=== PATIENT | female | born 1985 | race Caucasian/White ===

== ENCOUNTER 2016-06-26 09:47 | Inpatient (IN) | payer OTHER ==
[~2016-06-26] VITALS: Ht 160 cm; Wt 67.2 kg
[~2016-06-26 09:47] MED LIST: LORA-741 PO; ZOLP5TAB PO
[2016-06-26] MEDS ORDERED: SODIUM CHLORIDE 0.9% 1000ML 1,000 ML IV STA (09:58)
--- NOTE | 2016-06-26 10:13 | EMERGENCY ROOM VISIT NOTE ---
History Report prepared by Kaity: Mari Armenta Under the Supervision of: Dr. Drake Segura D.O. First contact with patient: 09:50 Chief Complaint: OVERDOSE (INTENTIONAL) Stated Complaint: OVERDOSED ON ATIVAN/INTENTIONAL History of Present Illness The patient is a 31 year old female who presents to the Emergency Room with complaints of intentional overdose on Ativan. About an hour and a half ago, the patient's found her to be extremely drowsy. The patient states that she took the Ativan at least an hour ago. She reports taking half of a bottle of 0.5 mg Ativan. As per , she took at least 15-18 pills. She denies overdosing on any other medication but the patient's is unsure. She also reports taking Amoxicillin and Zoloft as prescribed. She denies vomiting. She currently denies any pain. The patient reports suicidal ideation starting a few days ago. She started having severe anxiety and depression last week. She was recently discharged from the [facility] after being treated for depression and anxiety. She took the Ativan in an attempt to commit suicide. Source of History: patient, spouse/significant other Onset: about an hour and a half ago Position: other (global) Symptom Intensity: No pain Quality: other (intentional overdose on Ativan) Associated Symptoms: No vomiting Review of Systems See HPI for pertinent positives & negatives. A total of 10 systems reviewed and were otherwise negative. Past Medical & Surgical Medical Problems: (1) Anxiety (2) Bipolar disorder (3) Depression (4) Overdose Surgical Problems: (1) H/O wisdom tooth extraction (2) Hx of cholecystectomy Family History Cancer Diabetes mellitus Heart disease Hypertension Social History Smoking Status: Current Every Day Smoker Alcohol Use: none Drug Use: none Marital Status: Housing Status: lives with family, lives with significant other Occupation Status: unemployed Current/Historical Medications Scheduled Lorazepam (Ativan), 0.5 MG PO Q6H Zolpidem Tartrate (Ambien), 5 MG PO HS Allergies Coded Allergies: Penicillins (Unverified Allergy, Unknown, UNKNOWN,HAS HAD AMOXICILLIN W/O RXN, 06/26/16) has had amoxillin and had not reaction Physical Exam Vital Signs Date Time Temp Pulse Resp B/P Pulse Ox O2 Delivery O2 Flow Rate FiO2 06/26/16 13:23 68 16 90/66 97 Room Air 06/26/16 13:03 64 06/26/16 12:30 58 16 89/41 98 Nasal Cannula 2.0 06/26/16 12:15 57 16 105/62 97 Nasal Cannula 2.0 06/26/16 11:28 59 16 88/43 97 Room Air 06/26/16 10:48 62 18 90/53 99 Nasal Cannula 2.0 06/26/16 10:34 75 06/26/16 10:33 100 Nasal Cannula 2.0 06/26/16 10:28 69 14 111/65 100 Nasal Cannula 2.0 06/26/16 10:16 99 Room Air 06/26/16 09:53 36.5 77 16 123/78 97 Room Air Physical Exam GENERAL: Patient is listless and slow to respond to questions. Does not appear to be in pain. EYES: The conjunctivae are clear. The pupils are dilated but reactive to light bilaterally. EARS, NOSE, MOUTH AND THROAT: The nose is without any evidence of any deformity. Mucous membranes are moist tongue is midline NECK: The neck is nontender and supple. RESPIRATORY: Normal respiratory effort is noted there is no evidence of wheezing rhonchi or rales CARDIOVASCULAR: Regular rate and rhythm noted there no murmurs rubs or gallops normal S1 normal S2 GASTROINTESTINAL: The abdomen is soft. Bowel sounds are present in all quadrants. Abdomen is nontender MUSCULOSKELETAL/EXTREMITIES: There is no evidence of gross deformity full range of motion is noted in the hips and shoulders SKIN: There is no obvious evidence of any rash. There are no petechiae, pallor or cyanosis noted. NEUROLOGIC: Patient is oriented to person, place, and situation, strength is symmetric patellar reflexes are 1+ bilaterally PSYCHIATRIC: Affect is flat. Admits to suicidal ideation and suicidal gesture. Medical Decision & Procedures ER Provider Diagnostic Interpretation: X-ray results as stated below per interpretation by me and the radiologist. SINGLE VIEW CHEST CLINICAL HISTORY: Overdose. FINDINGS: An AP, portable, upright chest radiograph is obtained. No prior studies are available for comparison at the time of dictation. The examination is degraded by portable technique and patient rotation. The cardiomediastinal silhouette is unremarkable. The lungs and pleural spaces are clear. No pneumothorax is seen. The bony thorax is grossly intact. IMPRESSION: No active disease in the chest. Electronically signed by: Kadeem Erickson M.D. 06/26/2016 10:18 AM Dictated Date/Time: 06/26/2016 10:17 AM Laboratory Results 06/26/16 10:00 Red Blood Count 4.38, Mean Corpuscular Volume 90.2, Mean Corpuscular Hemoglobin 31.7, Mean Corpuscular Hemoglobin Concent 35.2, Mean Platelet Volume 10.9, Neutrophils (%) (Auto) 60.9, Lymphocytes (%) (Auto) 23.9, Monocytes (%) (Auto) 9.5, Eosinophils (%) (Auto) 4.1, Basophils (%) (Auto) 0.7, Neutrophils # (Auto) 3.25, Lymphocytes # (Auto) 1.28, Monocytes # (Auto) 0.51, Eosinophils # (Auto) 0.22, Basophils # (Auto) 0.04 Test 06/26/16 10:00 06/26/16 10:21 06/26/16 10:26 White Blood Count 5.35 K/uL (4.8-10.8) Red Blood Count 4.38 M/uL (4.2-5.4) Hemoglobin 13.9 g/dL (12.0-16.0) Hematocrit 39.5 % (37-47) Mean Corpuscular Volume 90.2 fL (80-100) Mean Corpuscular Hemoglobin 31.7 pg (25-34) Mean Corpuscular Hemoglobin Concent 35.2 g/dl (32-36) Platelet Count 209 K/uL (130-400) Mean Platelet Volume 10.9 fL (7.4-10.4) Neutrophils (%) (Auto) 60.9 % Lymphocytes (%) (Auto) 23.9 % Monocytes (%) (Auto) 9.5 % Eosinophils (%) (Auto) 4.1 % Basophils (%) (Auto) 0.7 % Neutrophils # (Auto) 3.25 K/uL (1.4-6.5) Lymphocytes # (Auto) 1.28 K/uL (1.2-3.4) Monocytes # (Auto) 0.51 K/uL (0.11-0.59) Eosinophils # (Auto) 0.22 K/uL (0-0.5) Basophils # (Auto) 0.04 K/uL (0-0.2) RDW Standard Deviation 39.4 fL (36.4-46.3) RDW Coefficient of Variation 12.0 % (11.5-14.5) Immature Granulocyte % (Auto) 0.9 % Immature Granulocyte # (Auto) 0.05 K/uL (0.00-0.02) Prothrombin Time 10.7 SECONDS (9.0-12.0) Prothromb Time International Ratio 1.0 (0.9-1.1) Activated Partial Thromboplast Time 28.9 SECONDS (21.0-31.0) Partial Thromboplastin Ratio 1.1 Direct Bilirubin < 0.1 mg/dl (0-0.2) Total Creatine Kinase 148 U/L (26-192) Troponin I < 0.015 ng/ml (0-0.045) Lipase 122 U/L (73-393) Human Chorionic Gonadotropin, Qual NEG (NEG) Salicylates Level 3.5 mg/dl (2.8-20) Acetaminophen Level < 2 ug/ml (10-30) Venous Blood pH 7.34 (7.36-7.41) Venous Blood Partial Pressure CO2 36 mmHg (38.0-50.0) Venous Blood Partial Pressure O2 33 mmHg Venous Blood HCO3 19 mmol/L Venous Blood Oxygen Saturation 65.4 % Venous Blood Base Excess -5.9 mmol/L Ethyl Alcohol mg/dL < 3.0 mg/dl (0-3) Bedside Glucose 86 mg/dl (70-90) Laboratory results per my review. Medications Administered Medications (Trade) Dose Ordered Sig/Kenrick Route Start Time Stop Time Status Last Admin Dose Admin Sodium Chloride (Nss 1000ml) 1,000 ml @ 999 mls/hr Q1H1M STAT IV 06/26/16 09:58 06/26/16 10:58 DC 06/26/16 09:58 999 MLS/HR ECG Indication: other (Overdose) Rate (beats per minute): 58 Rhythm: sinus bradycardia Findings: no ectopy, other (No acute ST segment abnormality) Comparison ECG Date: no prior available ED Course 0950: The patient was evaluated in room A03. A complete history and physical examination were performed. 0958: Sodium Chloride 1000 ml @ 999 mls/hr IV 1230: Upon reevaluation, the patient is resting comfortably. I discussed results and treatment plan with the patient and her . They verbalize agreement and understanding. I spoke with Karen Majano PA-C of the [facility]. The patient will be evaluated for further management and care. Medical Decision Prior records/ancillary studies reviewed. Triage Nursing notes reviewed. Additional history obtained from . Differential diagnosis: Etiologies such as toxicologic, infection, hypoglycemia, electrolyte abnormalities, cardiac sources, intracerebral event, neurologic, as well as others were entertained. The patient is a 31-year-old female who presented to the emergency department after an intentional overdose on benzodiazepines. The patient admitted to taking a handful of her Ativan this morning. The patient presented greater than an hour after the ingestion and was already starting to become obtunded. For this reason she was not given charcoal. The patient was observed in the emergency department. She was treated with IV fluids. She continued to be obtunded. I discussed his case with the [facility]. I also discussed his case with the on-call [facility] hospitalist group. They've agreed to evaluate the patient in emergency department for further management and disposition. I discussed the patient's laboratory and radiographic studies with her and her significant other as well as her father. I do feel the patient will continue to improve over time. She did not appear to require endotracheal intubation at this time. Consults Time Called: 1206 Consulting Physician: Karen Majano PA-C of the [facility] Medical Group Returned Call: 1230 I spoke with Karen Majano PA-C of the [facility]. Impression Primary Impression: Suicidal ideation Additional Impressions: Suicide gesture Benzodiazepine overdose Scribe Attestation The scribe's documentation has been prepared under my direction and personally reviewed by me in its entirety. I confirm that the note above accurately reflects all work, treatment, procedures, and medical decision making performed by me. Departure Information Dispostion Being Evaluated By Hospitalist Referrals No Doctor, Assigned (PCP) Patient Instructions My [facility] Problem Qualifiers
--- NOTE | 2016-06-26 10:19 | DIAGNOSTIC IMAGING REPORT ---
SINGLE VIEW CHEST CLINICAL HISTORY: Overdose. FINDINGS: An AP, portable, upright chest radiograph is obtained. No prior studies are available for comparison at the time of dictation. The examination is degraded by portable technique and patient rotation. The cardiomediastinal silhouette is unremarkable. The lungs and pleural spaces are clear. No pneumothorax is seen. The bony thorax is grossly intact. IMPRESSION: No active disease in the chest. Electronically signed by: Kadeem Erickson M.D. 06/26/2016 10:18 AM Dictated Date/Time: 06/26/2016 10:17 AM
[2016-06-26 10:24] LABS: HEMATOCRIT 39.5 % (37-47); MEAN CELL VOLUME 90.2 fL (80-100); MEAN CORPUSCULAR HEMOGLOBIN 31.7 pg (25-34); MEAN CORPUSCULAR HGB CONC 35.2 g/dl (32-36); MEAN PLATELET VOLUME 10.9 fL (7.4-10.4); PLATELET COUNT 209 K/uL (130-400); RED BLOOD COUNT 4.38 M/uL (4.2-5.4); WHITE BLOOD COUNT 5.35 K/uL (4.8-10.8)
[2016-06-26 10:28] LABS: PARTIAL THROMBOPLASTIN RATIO 1.1; PROTHROMBIN TIME (PATIENT) 10.7 SECONDS (9.0-12.0)
[2016-06-26 10:37] LABS: ALT/SGPT 33 U/L (12-78); AST/SGOT 20 U/L (15-37); BLOOD UREA NITROGEN 11 mg/dl (7-18); BUN/CREATININE RATIO 11.2 (10-20); CALCIUM 8.7 mg/dl (8.5-10.1); CARBON DIOXIDE 20 mmol/L (21-32); CHLORIDE 111 mmol/L (98-107); CREATININE 0.94 mg/dl (0.60-1.20); GLUCOSE 78 mg/dl (70-99); POTASSIUM 3.7 mmol/L (3.5-5.1); SODIUM 141 mmol/L (136-145)
[2016-06-26 10:40] LABS: VEN BLD GAS O2 SATURATION 65.4 %; VEN BLOOD GAS BASE EXCESS -5.9 mmol/L
[2016-06-26 10:40] LABS: PREG INTERNAL NEGATIVE QC NEG CLEAR BACKGROUND; PREG INTERNAL POSITIVE QC POS CONTROL LINE
[2016-06-26 10:42] LABS: ALKALINE PHOSPHATASE 89 U/L (45-117)
[2016-06-26 10:43] LABS: BASO % 0.7 %; BASO ABS # 0.04 K/uL (0-0.2); COMPLETE YES; EOS % 4.1 %; IG% 0.9 %; LYMPH % 23.9 %; LYMPH ABS # 1.28 K/uL (1.2-3.4); MONO % 9.5 %; NEUT % 60.9 %
[2016-06-26 10:45] LABS: ACETAMINOPHEN < 2 ug/ml (10-30)
[2016-06-26] MEDS ORDERED: SODIUM CHLORIDE 0.9% 1000ML 1,000 ML IV SCH (13:02)
[2016-06-26] MEDS ORDERED: NITROGLYCERIN 0.4 MG SL PER TAB CHARGE SL PRN (13:15)
[2016-06-26] MEDS ORDERED: ACETAMINOPHEN 325 MG TAB PO PRN (13:15)
[2016-06-26] MEDS ORDERED: ONDANSETRON INJ 2 MG/ML 2 ML VIAL IV PRN (13:15)
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
[2016-06-26 14:59] VITALS: BP 107/67; PULSE 72; TEMP 36.5; O2SAT 98; Ht 160 cm; Wt 67.2 kg
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
[2016-06-26 15:34] LABS: URINE APPEARANCE CLOUDY (CLEAR); URINE BILIRUBIN NEG (NEG); URINE COLOR YELLOW; URINE EPITHELIAL CELL AUTO >30 /lpf (0-5); URINE NITRITE NEG (NEG); URINE PH 6.5 (4.5-7.5); UROBILINOGEN NEG (NEG)
[2016-06-26 15:38] LABS: MANUAL MICROSCOPIC REQUIRED? NO; REVIEW REQ? NO
[2016-06-26 16:00] VITALS: BP 113/78; PULSE 63; TEMP 36.7; O2SAT 98
[2016-06-26 16:33] LABS: BENZODIAZEPINE, URINE NEG (NEG); COCAINE,URINE NEG (NEG); PHENCYCLIDINE, URINE NEG (NEG)
[2016-06-26 16:37] LABS: BUN/CREATININE RATIO 13.3 (10-20); CALCIUM 8.2 mg/dl (8.5-10.1); CREATININE 0.72 mg/dl (0.60-1.20); POTASSIUM 3.7 mmol/L (3.5-5.1)
[2016-06-26 18:00] VITALS: BP 104/73; PULSE 69; O2SAT 97
[2016-06-26 20:00] VITALS: BP 99/69; PULSE 52; TEMP 36.4; O2SAT 96; O2SAT 98
[2016-06-26 22:00] VITALS: BP 96/55; PULSE 58; O2SAT 95
[2016-06-26 23:59] VITALS: O2SAT 96
[2016-06-27] VITALS (18 sets, daily range): BP systolic 98–122; BP diastolic 51–73; PULSE 53–83; TEMP 36.5–36.8; O2SAT 95–98
[2016-06-27 06:13] LABS: MEAN CELL VOLUME 91.9 fL (80-100); MEAN CORPUSCULAR HEMOGLOBIN 31.2 pg (25-34); MEAN PLATELET VOLUME 10.8 fL (7.4-10.4); PLATELET COUNT 174 K/uL (130-400); RED BLOOD COUNT 3.81 M/uL (4.2-5.4); WHITE BLOOD COUNT 6.52 K/uL (4.8-10.8)
[2016-06-27 06:40] LABS: BUN/CREATININE RATIO 20.7 (10-20); CALCIUM 7.8 mg/dl (8.5-10.1); CREATININE 0.59 mg/dl (0.60-1.20); POTASSIUM 3.7 mmol/L (3.5-5.1)
[2016-06-27 06:42] LABS: ALB/GLOB RATIO 1.1 (0.9-2)
--- NOTE | 2016-06-27 10:44 | Critical Care Progress Note ---
Critical Care Progress Note Date of Service Jun 27, 2016. Attending Dr. Barrie Brian Esha Mcdonald is a 31 yr old female with a significant past psychiatric hx of anxiety, bipolar, and depression requiring both hospitalization and chronic medication use. She was recently discharged from the [facility] on 06/20/2016 after experiencing suicidal ideations. While there she began having increased auditory hallucinations, which she states were not addressed. She received Ativan 0.5mg q6hr for anxiety. She stated today that she was not taking this medication as directed. She instead held it until yesterday at which time her mother's voice was bullying her in her head and she took 1/2 the bottle to shut her mother's voice up. She stated her day had already started off difficult as her was screaming at the kids as well. She entered the ED with hypotension which responded to fluids and bradycardia which as since improved to NSR. Today her diet was restarted and she is tolerating it well. She continues to state she can not live like this; referring to the voices in her head. She would like to go to [place] for continued Psychiatric therapy. She states she will not go upstairs to [facility] or back to the [facility]. She did ask if she was currently voluntary status, I reassured her that she currently is. She would like it to remain that way and is accepting of inpatient treatment. She did ask if she could go home; to which she quickly replied and said "I know, No" I have spoken with Dr. Hampton last evening in the hopes to expedite Ms. Mcdonald transfer to inpatient psych care; we are awaiting formal recommendations. The nurse liaison did she her last evening. All psych medications have currently been held by the ICU/hospitalist providers. I spoke with her in regards to her urine toxicology screen being negative for Benzos when she states she took 1/2 bottle of Ativan. She called her who checked the bottles and confirmed it was indeed her Ativan. She denies visual hallucinations; states the the auditory come and go. She denies changes in vision or headache. She denies fevers, chills, malaise. chest pain/pressure, shortness of breath, or cough. She denies abd pain, nausea, or dysuria. Objective Vital Signs - as noted Laboratory Data - as noted Physical Exam: General - NAD, depressed affect, resting in bed Eyes - PERRL, EOMI No icterus, gaze conjugate ENT - Mucosa moist, no lesions or candidiasis Neck - Supple, trachea midline, no masses or lymphadenopathy, no JVD or bruits Lungs - No paradoxical chest wall movement, clear to auscultation bilaterally, no wheezes, rales, or rhonchi Heart - Reg rate and rhythm, No murmur, rubs, clicks, or gallops appreciated Abdomen - BS present, no bruits noted, tympanic to percussion, soft, nontender, nondistended, no organomegaly Extremities - No edema, pedal pulses intact Neuro - A&O X 4 Strength: extremities equal and appropriate bilaterally Reflexes: Brachioradialis, patellar, and plantar normal and equal Cerebellum: Finger to nose appropriate CN:PERRL, EOMI, no facial asymmetry, uvula/tongue midline Assessment & Plan (1) Benzodiazepine overdose (2) Depression (3) Overdose (4) Suicidal ideation (5) Suicide gesture (6) Anxiety (7) Bipolar disorder Neuro/psych: Benzodiazepine overdose secondary to suicidal ideation and depression Spoke with Dr. Hampton in regards to expediting consult 06/26; Nurse Liaison did indeed see pt last evening. Communication from Dr. Hampton this morning is that they will attempt to refer her to the alternate facility; however, if they won't accept her then our unit has an available bed. She may need to be 302 for her safety if [facility] does not accept her and she refuses care here. Suspicious of pt's OD being malingering; as urine tox screen is negative for benzo use. Suicide checks every 15 minutes per nursing Repeat Urine Drug Screen; previous screen is negative for Benzos Consult psych pending * Hold home meds pending psychiatric recommendations * Pt will to 201 herself to inpatient psychiatric treatment Cardiology: NSR, SBP improving Now: HR 80's and SBP >100 Stabilized, would agree to downgrading medical status Discontinue fluids Respiratory: Currently stable with adequate saturations on room air No respiratory compromise noted since admission Continue to observe : Positive 1.1L BUNs/creatinine: 12/0.59 Discontinue fluids GI: Patient states last BM in the emergency department; not seen in her records No abdominal pain No indication for GI prophylaxis Begin Regular Diet now Heme: H&H 11.9/35.0; Plts 174 No sign of bleeding; decrease in H&H likely dilutional DVT prophylaxis: * SCDs ordered * Out of bed and ambulatory per nursing discretion ID: WBC 6.52; afebrile No indication for abx ENDO: Glucose trending down; 55 this AM Previous admission records show glucose in the 90's. Began Diet and provided O.J Recheck Glucose per nursing protocol CCT: 0 minutes; Level 3 Inpatient; Not including any billable procedures. Thank you for including us in the care of this patient. Please review Dr. Storm Kaye's addendum for further recommendations. Wireless Sales Expert Attending: I personally interviewed and examined this patient. Her care was discussed in detail on multidisciplinary rounds and I have reviewed her data and labs as well as documentation. I have reviewed this note and agree with the impression and plan. Medically she is cleared to go to the psychiatry service. It's still unclear if the urine tox screen was falsely negative for benzos or if there may be some malingering. Her BP is acceptable as is her mental status. We are awaiting word regarding transfer to the floor vs. transfer to [place]. Many thanks to the [facility] for their assistance in her care. Consults & Procedures Consultants: Consults: Psych: Dr. Hampton Data Medications: Current Inpatient Medications Medications (Trade) Dose Ordered Sig/Kenrick Route Start Time Stop Time Status Last Admin Dose Admin Acetaminophen (Tylenol Tab) 650 mg Q4H PRN PO 06/26/16 13:15 07/26/16 13:14 Ondansetron HCl (Zofran Inj) 4 mg Q6H PRN IV 06/26/16 13:15 07/26/16 13:14 Nitroglycerin (Nitrostat Tab) 0.4 mg UD PRN SL 06/26/16 13:15 07/26/16 13:14 I & O: 24-Hour Column 06/27/16 07:59 Intake Total 1984 ml Output Total 800 ml Balance 1184 ml Vital Signs: Date Time Temp Pulse Resp B/P Pulse Ox O2 Delivery O2 Flow Rate FiO2 06/27/16 08:00 83 21 98 06/27/16 07:58 36.7 68 22 102/65 97 Room Air 06/27/16 07:45 96 Room Air 06/27/16 07:27 75 16 108/60 97 06/27/16 07:00 79 21 95 06/27/16 06:00 71 22 111/51 96 Room Air 06/27/16 04:00 96 Room Air 06/27/16 04:00 36.8 74 21 105/59 96 Room Air 06/27/16 02:00 73 20 98/58 95 Room Air 06/27/16 00:01 36.5 19 101/59 95 06/26/16 23:59 96 Room Air 06/26/16 22:00 58 22 96/55 95 Room Air 06/26/16 20:00 98 Room Air 06/26/16 20:00 36.4 52 24 99/69 96 Room Air 06/26/16 18:00 69 10 104/73 97 Room Air 06/26/16 16:00 36.7 63 20 113/78 98 Room Air 06/26/16 16:00 98 Room Air 06/26/16 14:59 36.5 72 22 107/67 98 Room Air 06/26/16 13:57 81 16 100/67 100 Room Air 06/26/16 13:23 68 16 90/66 97 Room Air 06/26/16 13:03 64 06/26/16 12:30 58 16 89/41 98 Nasal Cannula 2.0 06/26/16 12:15 57 16 105/62 97 Nasal Cannula 2.0 06/26/16 11:28 59 16 88/43 97 Room Air 06/26/16 10:48 62 18 90/53 99 Nasal Cannula 2.0 06/26/16 10:34 75 06/26/16 10:33 100 Nasal Cannula 2.0 06/26/16 10:28 69 14 111/65 100 Nasal Cannula 2.0 06/26/16 10:16 99 Room Air Laboratory Results: Last 24 Hours Test 06/26/16 10:21 06/26/16 10:26 06/26/16 14:30 06/26/16 15:46 Venous Blood pH 7.34 Venous Blood Partial Pressure CO2 36 mmHg Venous Blood Partial Pressure O2 33 mmHg Venous Blood HCO3 19 mmol/L Venous Blood Oxygen Saturation 65.4 % Venous Blood Base Excess -5.9 mmol/L Ethyl Alcohol mg/dL < 3.0 mg/dl Bedside Glucose 86 mg/dl Urine Color YELLOW Urine Appearance CLOUDY Urine pH 6.5 Urine Specific Dalton 1.010 Urine Protein NEG Urine Glucose (UA) NEG Urine Ketones TRACE Urine Occult Blood 3+ Urine Nitrite NEG Urine Bilirubin NEG Urine Urobilinogen NEG Urine Leukocyte Esterase NEG Urine WBC (Auto) 1-5 /hpf Urine RBC (Auto) >30 /hpf Urine Hyaline Casts (Auto) 1-5 /lpf Urine Epithelial Cells (Auto) >30 /lpf Urine Bacteria (Auto) NEG Urine Opiates Screen NEG Urine Methadone, Qualitative NEG Urine Barbiturates NEG Urine Phencyclidine (PCP) Level NEG Ur Amphetamine/Methamphetamine NEG MDMA (Ecstasy) Screen NEG Urine Benzodiazepines Screen NEG Urine Cocaine Metabolite NEG Urine Marijuana (THC) NEG Sodium Level 144 mmol/L Potassium Level 3.7 mmol/L Chloride Level 116 mmol/L Carbon Dioxide Level 20 mmol/L Anion Gap 8.0 mmol/L Blood Urea Nitrogen 10 mg/dl Creatinine 0.72 mg/dl Est Creatinine Clear Calc Drug Dose 107.2 ml/min Estimated GFR () 131.2 Estimated GFR (Non- 113.2 BUN/Creatinine Ratio 13.3 Random Glucose 71 mg/dl Calcium Level 8.2 mg/dl Total Bilirubin 0.3 mg/dl Aspartate Amino Transf (AST/SGOT) 18 U/L Alanine Aminotransferase (ALT/SGPT) 26 U/L Alkaline Phosphatase 75 U/L Total Protein 6.5 gm/dl Albumin 3.3 gm/dl Globulin 3.2 gm/dl Albumin/Globulin Ratio 1.0 Test 06/27/16 05:40 White Blood Count 6.52 K/uL Red Blood Count 3.81 M/uL Hemoglobin 11.9 g/dL Hematocrit 35.0 % Mean Corpuscular Volume 91.9 fL Mean Corpuscular Hemoglobin 31.2 pg Mean Corpuscular Hemoglobin Concent 34.0 g/dl RDW Standard Deviation 41.0 fL RDW Coefficient of Variation 12.1 % Platelet Count 174 K/uL Mean Platelet Volume 10.8 fL Sodium Level 144 mmol/L Potassium Level 3.7 mmol/L Chloride Level 116 mmol/L Carbon Dioxide Level 15 mmol/L Anion Gap 13.0 mmol/L Blood Urea Nitrogen 12 mg/dl Creatinine 0.59 mg/dl Est Creatinine Clear Calc Drug Dose 129.5 ml/min Estimated GFR () 143.6 Estimated GFR (Non- 123.9 BUN/Creatinine Ratio 20.7 Random Glucose 55 mg/dl Calcium Level 7.8 mg/dl Total Bilirubin 0.4 mg/dl Aspartate Amino Transf (AST/SGOT) 15 U/L Alanine Aminotransferase (ALT/SGPT) 22 U/L Alkaline Phosphatase 70 U/L Total Protein 6.1 gm/dl Albumin 3.2 gm/dl Globulin 2.9 gm/dl Albumin/Globulin Ratio 1.1
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
[2016-06-27] MEDS ORDERED: AMOX875T PO (14:28)
--- NOTE | 2016-06-27 14:29 | Discharge Instructions ---
Discharge Instructions Admission Reason for Admission: Overdose Discharge Discharge Diagnosis / Problem: Overdose Discharge Goals Goal(s): Improve disease control Activity Recommendations Activity Level: Up Ad Natalia . Additional Information Patient informed of condition: Yes Advance Directives: No DNR: No Level of Care: Other (Inpatient mental health) Communicable Disease: No Prognosis: Stable Olivares Catheter: No Current Hospital Diet Patient's current hospital diet: Regular Diet Discharge Diet Recommended Diet: Regular Diet Pending Studies Studies pending at discharge: no Medical Emergencies . Who to Call and When: Medical Emergencies: If at any time you feel your situation is an emergency, please call 911 immediately. . Non-Emergent Contact Non-Emergency issues call your: Primary Care Provider, Specialist (Psychiatrist ) . . "Provider Documentation" section prepared by Myrtle Pierre. Core Measure Problem Core Measures: None
[2016-06-27] MEDS ORDERED: AMOXICILLIN/CLAVULANATE TAB 875 MG TAB PO SCH (16:30)
[2016-06-27 16:37] LABS: BENZODIAZEPINE, URINE NEG (NEG); COCAINE,URINE NEG (NEG); PHENCYCLIDINE, URINE NEG (NEG)
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
== END 2016-06-27 16:09 | DRG 918 ==
LOC: CANRESERV → ENRESERVDT → ENRESERVTM → C.EDB 09:49 → C.MSICU 13:33 → EDBEDREQSVC 13:35
PROVIDERS: ADMIT Hospitalist; ATTEND Internal Medicine
DX: T42.4X2A Poisoning by benzodiazepines, intentional self-harm, initial encounter (principal); R44.0 Auditory hallucinations; F32.9 Major depressive disorder, single episode, unspecified; R41.82 Altered mental status, unspecified; I95.9 Hypotension, unspecified; R00.1 Bradycardia, unspecified; R07.9 Chest pain, unspecified; F41.9 Anxiety disorder, unspecified; F43.10 Post-traumatic stress disorder, unspecified; H66.90 Otitis media, unspecified, unspecified ear; F17.210 Nicotine dependence, cigarettes, uncomplicated; Z79.899 Other long term (current) drug therapy; Z91.5 Personal history of self-harm; Z62.810 Personal history of physical and sexual abuse in childhood; Z62.811 Personal history of psychological abuse in childhood

== ENCOUNTER 2017-03-03 09:52 | Emergency (ER) | payer OTHER ==
[~2017-03-03] VITALS: Ht 160 cm; Wt 81.6 kg
[2017-03-03 09:54] VITALS: TEMP 36.5; Ht 160 cm; Wt 81.6 kg
[2017-03-03] MEDS ORDERED: RANI150T3 PO (10:05)
[2017-03-03] MEDS ORDERED: FLUO20CA35 PO (10:05)
[2017-03-03] MEDS ORDERED: SODIUM CHLORIDE 0.9% 500ML 500 ML IV STA (10:26)
--- NOTE | 2017-03-03 10:35 | EMERGENCY ROOM VISIT NOTE ---
History Report prepared by Kaity: Christiane Tobar Under the Supervision of: Dr. Shahab Phillips M.D. First contact with patient: 10:02 Chief Complaint: SHORTNESS OF BREATH Stated Complaint: SOB, 31 WEEKS Nursing Triage Summary: Pt is 31 1/2 weeks pregant. Got Flu and DPT vaccine, feeling very SOB especially when going upstairs and almost passed out. History of Present Illness The patient is a 31 year old white female with a past medical history of anxiety , bipolar disorder, depression, and a gallbladder surgery who presents to the ED with a cc of worsening shortness of breath beginning about 2 weeks ago. Positive lightheadedness, and coughing on exertion. Negative swelling in extremities, coughing up blood or mucus, recent travel, or vaginal bleeding. She notes her SOB worsens when walking up the stairs The patient got the DPT and Flu vaccine 5 days ago. The patient is 31 1/2 weeks by ultrasound. The patient's last ultrasound was in November. This is the patient's 3rd and she has two healthy children. The patient is a former smoker. Source of History: patient Onset: two weeks ago Timing: worsening Modifying Factors (Worsening): exertion Associated Symptoms: + cough, + SOB Note: Pt notes lightheadedness. Negative swelling in extremities, coughing up blood or mucus, recent travel, or vaginal bleeding. Review of Systems See HPI for pertinent positives and negatives. A total of ten systems were reviewed and were otherwise negative. Past Medical & Surgical Medical Problems: (1) Anxiety (2) Bipolar disorder (3) Depression (4) Overdose Surgical Problems: (1) H/O wisdom tooth extraction (2) Hx of cholecystectomy Family History Cancer Diabetes mellitus Heart disease Hypertension Social History Smoking Status: Former Smoker Alcohol Use: none Drug Use: none Marital Status: Housing Status: lives with family, lives with significant other Occupation Status: unemployed Current/Historical Medications Scheduled Fluoxetine (Prozac), 20 MG PO DAILY Ranitidine Hcl (Zantac), 150 MG PO BID Allergies Coded Allergies: Penicillins (Unverified Allergy, Unknown, UNKNOWN,HAS HAD AMOXICILLIN W/O RXN, 06/26/16) has had amoxillin and had not reaction Physical Exam Vital Signs Date Time Temp Pulse Resp B/P (MAP) Pulse Ox O2 Delivery O2 Flow Rate FiO2 03/03/17 11:45 61 18 118/69 97 03/03/17 09:54 97 Room Air 03/03/17 09:54 36.5 80 20 110/71 98 Room Air Physical Exam GENERAL: Awake, alert, well-appearing, NAD HENT: Normocephalic, atraumatic. EYES: Normal conjunctiva. Sclera non-icteric. NECK: Supple. No nuchal rigidity. FROM. RESPIRATORY: Clear lung sounds, CTAB, no rhonchi, wheezing, crackles CARDIAC: RRR, no MRG ABDOMEN: Soft, NTND, BS+, Gravid uterus about 10 finger breathes superior to umbilicus. MSK: No chest wall TTP, no LE edema, asymmetry, calor, calf pain, or erythema. NEURO: GCS 15, CN 2-12 intact, moves all 4s on command SKIN: No rash or jaundice noted. Medical Decision & Procedures Laboratory Results 03/03/17 10:10 Red Blood Count 3.98, Mean Corpuscular Volume 85.2, Mean Corpuscular Hemoglobin 29.6, Mean Corpuscular Hemoglobin Concent 34.8, Mean Platelet Volume 10.7, Neutrophils (%) (Auto) 78.4, Lymphocytes (%) (Auto) 13.3, Monocytes (%) (Auto) 5.4, Eosinophils (%) (Auto) 1.8, Basophils (%) (Auto) 0.2, Neutrophils # (Auto) 9.00, Lymphocytes # (Auto) 1.52, Monocytes # (Auto) 0.62, Eosinophils # (Auto) 0.21, Basophils # (Auto) 0.02 03/03/17 10:10 Test 03/03/17 10:10 White Blood Count 11.47 K/uL (4.8-10.8) Red Blood Count 3.98 M/uL (4.2-5.4) Hemoglobin 11.8 g/dL (12.0-16.0) Hematocrit 33.9 % (37-47) Mean Corpuscular Volume 85.2 fL (80-100) Mean Corpuscular Hemoglobin 29.6 pg (25-34) Mean Corpuscular Hemoglobin Concent 34.8 g/dl (32-36) Platelet Count 169 K/uL (130-400) Mean Platelet Volume 10.7 fL (7.4-10.4) Neutrophils (%) (Auto) 78.4 % Lymphocytes (%) (Auto) 13.3 % Monocytes (%) (Auto) 5.4 % Eosinophils (%) (Auto) 1.8 % Basophils (%) (Auto) 0.2 % Neutrophils # (Auto) 9.00 K/uL (1.4-6.5) Lymphocytes # (Auto) 1.52 K/uL (1.2-3.4) Monocytes # (Auto) 0.62 K/uL (0.11-0.59) Eosinophils # (Auto) 0.21 K/uL (0-0.5) Basophils # (Auto) 0.02 K/uL (0-0.2) RDW Standard Deviation 40.7 fL (36.4-46.3) RDW Coefficient of Variation 13.2 % (11.5-14.5) Immature Granulocyte % (Auto) 0.9 % Immature Granulocyte # (Auto) 0.10 K/uL (0.00-0.02) Prothrombin Time 9.5 SECONDS (9.0-12.0) Prothromb Time International Ratio 0.9 (0.9-1.1) Activated Partial Thromboplast Time 25.2 SECONDS (21.0-31.0) Partial Thromboplastin Ratio 1.0 Anion Gap 10.0 mmol/L (3-11) Est Creatinine Clear Calc Drug Dose 144.8 ml/min Estimated GFR () 144.4 Estimated GFR (Non- 124.6 BUN/Creatinine Ratio 12.9 (10-20) Calcium Level 8.7 mg/dl (8.5-10.1) Total Bilirubin 0.3 mg/dl (0.2-1) Direct Bilirubin < 0.1 mg/dl (0-0.2) Aspartate Amino Transf (AST/SGOT) 15 U/L (15-37) Alanine Aminotransferase (ALT/SGPT) 14 U/L (12-78) Alkaline Phosphatase 110 U/L (45-117) Total Protein 6.9 gm/dl (6.4-8.2) Albumin 2.8 gm/dl (3.4-5.0) Lipase 139 U/L (73-393) Laboratory results reviewed by me Medications Administered Medications (Trade) Dose Ordered Sig/Kenrick Route Start Time Stop Time Status Last Admin Dose Admin Sodium Chloride 500 ml @ 999 mls/hr Q31M STAT IV 03/03/17 10:26 03/03/17 10:56 DC 03/03/17 10:42 999 MLS/HR ECG Indication: SOB/dyspnea Rate (beats per minute): 69 Rhythm: normal sinus Findings: other (normal interval, no STS changes, Single isolated TWI lead 3) ED Course 1018: The patient was evaluated in room C8. A complete history and physical exam was performed. 1121: Performed a bedside ultrasound. HR is 132 bpm. 1155: I reevaluated the patient. Discussed results and discharge instructions: She verbalized understanding and agreement. The patient is ready for discharge. Medical Decision The patient is a 31 year old white female with a past medical history of anxiety , bipolar disorder, depression, and gallbladder surgery who presents to the ED with a cc of worsening shortness of breath beginning about 2 weeks ago. Positive lightheadedness, coughing on exertion. Negative swelling in extremities , coughing up blood or mucus, recent travel, or vaginal bleeding Differential diagnosis: Etiologies such as infections, reactive airway disease, pneumonia, pneumothorax , COPD, CHF, cardiac ischemia, pulmonary embolism, musculoskeletal, gastrointestinal, as well as others were entertained. Patient was seen and evaluated the bedside. Patient was complaining of some mild exertional shortness of breath after climbing stairs. Patient is about 31 weeks in several days on ultrasound. Patient is a follow-up with alona. This is her third and she has 2 healthy children. Patient has no prior history of blood clots. No recent travel, no lower extremity swelling, no calf pain. Patient does not know of any family history predisposes her to blood clots. Patient vital signs stable. Patient is not hypoxic hypoxic nor tachycardic. Patient did have a bedside ultrasound was completed that showed heart rate in the 130s. Patient shows good concentric squeeze, normal EF , no RV dilatation, no septal buckling concerning for elevated right-sided pressures. Patient coags normal, platelet count normal. Patient has some mild anemia but is oxygenating well. Patient was told that less likely PE given all the findings but being is probably place her at higher risk of thromboembolism. PE less likely Wells 0. ACS less likely given nonischemic EKG. Likely related to increased volume, larger making breathing difficult 2/2 to size of fetus. Patient was given strict return precautions and warning signs. Patient agree to plan of care patient was safely discharged home. Medication Reconcilliation Current Medication List: was personally reviewed by me Blood Pressure Screening Patient's blood pressure: Normal blood pressure Impression Primary Impression: SOB (shortness of breath) on exertion Scribe Attestation The scribe's documentation has been prepared under my direction and personally reviewed by me in its entirety. I confirm that the note above accurately reflects all work, treatment, procedures, and medical decision making performed by me. Departure Information Dispostion Home / Self-Care Referrals Cody Aquino M.D. (PCP) Forms HOME CARE DOCUMENTATION FORM, IMPORTANT VISIT INFORMATION Patient Instructions ED Dyspnea Shortness of Breath, My [facility] Additional Instructions Please return to the emergency department if you have worsening or recurrent symptoms not amenable to at-home treatment. Please call for a follow-up appointment with her primary care physician. Please take your medications as prescribed. If you have other concerns and/or complaints please feel free to also call your primary care physician's office or return the ED for further evaluation, management, and treatment. Please follow up with your hog man. If you have worsening SOB, high heart rate, or leg swelling, please return to the ER for further evaluation. You have been examined and treated today on an emergency basis only. This is not a substitute for, or an effort to provide, complete comprehensive medical care. It is impossible to recognize and treat all injuries or illnesses in a single emergency department visit. It is therefore important that you follow up closely with [facility]. Call as soon as possible for an appointment. Thank you for your time and consideration. I look forward to speaking with you again soon. Please don't hesitate to call us if you have any questions.
[2017-03-03 10:39] LABS: BASO % 0.2 %; BASO ABS # 0.02 K/uL (0-0.2); COMPLETE YES; EOS % 1.8 %; HEMATOCRIT 33.9 % (37-47); IG% 0.9 %; LYMPH % 13.3 %; LYMPH ABS # 1.52 K/uL (1.2-3.4); MEAN CELL VOLUME 85.2 fL (80-100); MEAN CORPUSCULAR HEMOGLOBIN 29.6 pg (25-34); MEAN CORPUSCULAR HGB CONC 34.8 g/dl (32-36); MEAN PLATELET VOLUME 10.7 fL (7.4-10.4); MONO % 5.4 %; NEUT % 78.4 %; PLATELET COUNT 169 K/uL (130-400); RED BLOOD COUNT 3.98 M/uL (4.2-5.4); WHITE BLOOD COUNT 11.47 K/uL (4.8-10.8)
[2017-03-03 10:43] LABS: INR 0.9 (0.9-1.1); PROTHROMBIN TIME (PATIENT) 9.5 SECONDS (9.0-12.0)
[2017-03-03 10:50] LABS: ALT/SGPT 14 U/L (12-78); AST/SGOT 15 U/L (15-37); BLOOD UREA NITROGEN 7 mg/dl (7-18); BUN/CREATININE RATIO 12.9 (10-20); CALCIUM 8.7 mg/dl (8.5-10.1); CARBON DIOXIDE 21 mmol/L (21-32); CHLORIDE 108 mmol/L (98-107); CREATININE 0.58 mg/dl (0.60-1.20); GLUCOSE 96 mg/dl (70-99); POTASSIUM 3.9 mmol/L (3.5-5.1); SODIUM 139 mmol/L (136-145)
[2017-03-03 10:53] LABS: ALKALINE PHOSPHATASE 110 U/L (45-117)
--- NOTE | 2017-03-03 10:59 | DIAGNOSTIC IMAGING REPORT ---
SINGLE VIEW CHEST CLINICAL HISTORY: Atypical chest pain. FINDINGS: An AP, portable, upright chest radiograph is compared to study dated 06/26/2016. The examination is degraded by portable technique and patient rotation. The cardiomediastinal silhouette is unremarkable. The lungs and pleural spaces are clear. No pneumothorax is seen. The bony thorax is grossly intact. IMPRESSION: No active disease in the chest. Electronically signed by: Kadeem Erickson M.D. 03/03/2017 10:58 AM Dictated Date/Time: 03/03/2017 10:57 AM
[2017-03-03 11:45] VITALS: BP 118/69; PULSE 61; O2SAT 97
== END 2017-03-03 12:09 | disposition home or self-care (01) ==
LOC: C.EDB 09:53 → C.EDC 12:09
DX: O26.93 Pregnancy related conditions, unspecified, third trimester (principal); O99.343 Other mental disorders complicating pregnancy, third trimester; R06.02 Shortness of breath; F41.9 Anxiety disorder, unspecified; F31.9 Bipolar disorder, unspecified; Z3A.31 31 weeks gestation of pregnancy; Z87.891 Personal history of nicotine dependence; Z83.3 Family history of diabetes mellitus; Z82.49 Family history of ischemic heart disease and other diseases of the circulatory system

== ENCOUNTER 2017-04-03 21:34 | Inpatient (IN) | payer OTHER ==
[~2017-04-03] VITALS: Ht 160 cm; Wt 82.3 kg
[~2017-04-03 21:34] MED LIST changes: +FLUO20CA35 PO; -LORA-741 PO; +RANI150T3 PO; -ZOLP5TAB PO
[2017-04-03] MEDS ORDERED: LACTATED RINGER'S 1000ML 1,000 ML IV PRN (22:10)
[2017-04-03] MEDS ORDERED: LACTATED RINGER'S 1000ML 1,000 ML IV SCH (22:10)
[2017-04-03] MEDS ORDERED: LACTATED RINGER'S 1000ML 500 ML IV PRN (22:23)
[2017-04-03] MEDS ORDERED: OXYTOCIN 30 UNITS/500ML NSS IV PRN (22:30)
[2017-04-03 22:33] LABS: HEMATOCRIT 32.8 % (37-47); MEAN CELL VOLUME 83.2 fL (80-100); MEAN CORPUSCULAR HEMOGLOBIN 27.9 pg (25-34); MEAN CORPUSCULAR HGB CONC 33.5 g/dl (32-36); MEAN PLATELET VOLUME 10.9 fL (7.4-10.4); PLATELET COUNT 166 K/uL (130-400); RED BLOOD COUNT 3.94 M/uL (4.2-5.4); WHITE BLOOD COUNT 10.35 K/uL (4.8-10.8)
[2017-04-03 22:47] VITALS: Ht 160 cm; Wt 82.3 kg
[2017-04-03] MEDS ORDERED: PRENTAB26 PO (22:47)
[2017-04-03 23:03] LABS: ALB/GLOB RATIO 0.8 (0.9-2); BUN/CREATININE RATIO 15.3 (10-20); CALCIUM 9.4 mg/dl (8.5-10.1); CREATININE 0.55 mg/dl (0.60-1.20); POTASSIUM 3.6 mmol/L (3.5-5.1)
[2017-04-04] MEDS ORDERED: EpHEDrine SULFATE INJ 50 MG/ML AMP ONE
[2017-04-04] MEDS ORDERED: BUPIVACAINE 0.25% 30 ML VIAL ONE
[2017-04-04] MEDS ORDERED: FENTANYL 2MCG/ML ROPIV 1.25MG/ML 100ML BAG EPI ONE
[2017-04-04] MEDS ORDERED: FENTANYL CITRATE INJ 50 MCG/1 ML 2 ML VIAL ONE (00:01)
[2017-04-04] MEDS ORDERED: NALBUPHINE HCL INJ 10 MG/ML AMP IV PRN (02:00)
[2017-04-04] MEDS ORDERED: EpHEDrine SULFATE INJ 50 MG/ML AMP IV PRN (02:00)
[2017-04-04] MEDS ORDERED: DiphenhydrAMINE HCL 50 MG/ML VIAL IV PRN (02:00)
[2017-04-04] MEDS ORDERED: FENTANYL 2MCG/ML ROPIV 1.25MG/ML 100ML BAG EPI PRN (02:00)
[2017-04-04] MEDS ORDERED: NALOXONE HCL INJ 1 MG in SODIUM CHLORIDE 0.9% 1000ML 1,000 ML IV PRN (02:00)
[2017-04-04] MEDS ORDERED: LACTATED RINGER'S 1000ML 500 ML IV PRN (02:00)
[2017-04-04] MEDS ORDERED: NALOXONE HCL INJ 0.4 MG/1 ML VIAL/CARP IV PRN (02:00)
[2017-04-04] MEDS ORDERED: ONDANSETRON INJ 2 MG/ML 2 ML VIAL IV PRN (02:00)
[2017-04-04] MEDS ORDERED: ACETAMINOPHEN 325 MG TAB PO PRN (05:45)
[2017-04-04] MEDS ORDERED: MEASLES, MUMPS & RUBELLA VIRUS VIAL SQ. ONE (05:45)
[2017-04-04] MEDS ORDERED: OXYTOCIN 30 UNITS/500ML NSS IV PRN (05:45)
[2017-04-04] MEDS ORDERED: DIPHTHERIA/TETANUS/PERTUSSIS 0.5 ML SYR/VIAL IM. ONE (05:45)
[2017-04-04] MEDS ORDERED: BENZOCAINE 20% AER SPR 82.5 GM CAN EXT PRN (05:45)
[2017-04-04] MEDS ORDERED: LANOLIN OINT EXT PRN ×2 (05:45)
[2017-04-04] MEDS ORDERED: SUPERCREAM 0.870 % 15GM JAR EXT PRN (05:45)
[2017-04-04] MEDS ORDERED: HYDROCORTISONE ACETATE 25 MG SUPP PR PRN (05:45)
--- NOTE | 2017-04-04 05:59 | DELIVERY SUMMARY ---
DATE OF OPERATION: 04/04/2017 TIME OF DELIVERY: 05:07 a.m. TIME OF DELIVERY OF PLACENTA: 05:20 a.m. DETAILS OF DELIVERY: The patient was found to be fully dilated and desired to push. She pushed only once and delivered the head without difficulty. Shoulders were delivered with minimal traction. Baby was handed off to the mother, where mouth and nose were suctioned. Cord was clamped x2 and cut. It was a 3-vessel cord. Cord blood was obtained. Vagina and perineum were checked for lacerations. There were no lacerations found and it was intact. Then, placenta was found to be in the vagina, delivered spontaneously intact and complete. Uterus was explored and found to be empty. Lower segment was cleared off all clots and debris. Fundus was firm. EBL was 300. Mom and baby tolerated the procedure well. Sponge, lap, needle and instrument count was correct x2. Baby was a viable male infant. Apgars 7/8, weight is pending. No complications happened and I was present during the whole procedure. I attest to the content of the Intraoperative Record and any orders documented therein. Any exceptions are noted below. MTDD
[2017-04-04] MEDS ORDERED: CALCIUM CARBONATE 500 MG CHEWABLE ONE ×2 (06:10→06:11)
[2017-04-04] MEDS ORDERED: NURSING VERBAL MED ORDER ONE (06:15)
--- NOTE | 2017-04-04 07:11 | Anesthesia Procedure Note ---
Anesthesia Epidural Removal Nt Date & Time Apr 04, 2017 at 07:11 Vital Signs Pain Intensity: 0.0 Notes Mental Status: alert / awake / arousable, participated in evaluation Nausea / Vomiting: adequately controlled Pain: adequately controlled Airway Patency, RR, SpO2: stable & adequate BP & HR: stable & adequate Hydration State: stable & adequate Neuraxial Anesthesia: was administered Anesthetic Complications: no major complications apparent, pt satisfied with anesthetic care Epidural: removed without complications, with tip intact
[2017-04-04] MEDS: PRENATAL VITAMIN TAB PO SCH (07:30)
[2017-04-04] MEDS: FERROUS SULFATE 325 MG TAB PO SCH (07:30)
[2017-04-04] MEDS: DOCUSATE SODIUM 100 MG CAP PO SCH ×2 (07:31→21:19)
[2017-04-04] MEDS: TOPIRAMATE 50 MG TAB PO SCH ×2 (07:31→21:19)
[2017-04-04] MEDS: FLUOXETINE HCL 20 MG CAP PO SCH (07:31)
[2017-04-04 08:10] VITALS: BP 123/73; PULSE 58; TEMP 36.7
[2017-04-04] MEDS: CALCIUM CARBONATE 500 MG CHEWABLE PO PRN ×2 (10:06→14:39)
[2017-04-04] MEDS: IBUPROFEN 600 MG TAB PO PRN ×3 (10:07→21:27)
[2017-04-04 12:36] VITALS: BP 118/72
[2017-04-04 13:00] VITALS: PULSE 62; TEMP 36.7
[2017-04-04 15:30] VITALS: BP 119/74; PULSE 71; TEMP 36.7
[2017-04-04] MEDS: CHLORPROMAZINE HCL 25 MG TAB PO PRN (16:12)
[2017-04-04 19:30] VITALS: BP 124/73; PULSE 92; TEMP 36.4
[2017-04-04] MEDS: CHLORPROMAZINE HCL 100 MG TAB PO SCH (21:00)
[2017-04-04 23:35] VITALS: BP 98/63; PULSE 93; TEMP 36.9
[2017-04-05 03:40] VITALS: BP 109/74; PULSE 83; TEMP 36.2
[2017-04-05] MEDS: CALCIUM CARBONATE 500 MG CHEWABLE PO PRN ×3 (04:13→18:49)
[2017-04-05 07:17] LABS: HEMATOCRIT 28.1 % (37-47)
[2017-04-05 08:00] VITALS: BP 118/75; PULSE 88; TEMP 36.9; O2SAT 98
[2017-04-05] MEDS: TOPIRAMATE 50 MG TAB PO SCH ×2 (08:25→20:24)
[2017-04-05] MEDS: FLUOXETINE HCL 20 MG CAP PO SCH (08:25)
--- NOTE | 2017-04-05 08:27 | OB/GYN Progress Note ---
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 Subjective conversation w/ patient, physical exam Ambulation: ambulating normally Voiding: no voiding problems Passing Gas: Yes Diet Tolerance: Regular Diet Lochia: Moderate Review of Systems Constitutional: No fever, No chills, No sweats, No weight loss, No weakness, No fatigue, No problem reported Respiratory: No cough, No sputum, No wheezing, No shortness of breath, No dyspnea on exertion, No dyspnea at rest, No hemoptysis, No problem reported Cardiac: No chest pain, No orthopnea, No PND, No edema, No claudication, No palpitations, No problem reported Breast: No see HPI, No breast lump, No change in shape, No nipple discharge, No breast pain, No problem reported Abdomen: No pain, No nausea, No vomiting, No diarrhea, No constipation, No GI bleeding, No problem reported Female : No see HPI, No dysuria, No urinary frequency, No hematuria, No incontinence, No abnormal vaginal bleeding, No vaginal discharge, No problem reported Objective Vital Signs Date Time Temp Pulse Resp B/P (MAP) Pulse Ox O2 Delivery O2 Flow Rate FiO2 04/05/17 08:00 36.9 88 20 118/75 (89) 98 Room Air 04/05/17 08:00 Room Air 04/05/17 03:40 36.2 83 16 109/74 (86) Room Air 04/04/17 23:35 Room Air 04/04/17 23:35 36.9 93 16 98/63 (75) Room Air 04/04/17 19:30 36.4 92 20 124/73 (90) Room Air 04/04/17 15:30 36.7 71 20 119/74 (89) Room Air 04/04/17 15:30 Room Air 04/04/17 13:00 36.7 62 18 04/04/17 12:36 118/72 (87) Physical Exam General Appearance: WELL-APPEARING, WD/WN, NO APPARENT DISTRESS Respiratory/Chest: chest non-tender, lungs clear, normal breath sounds, no respiratory distress, no accessory muscle use Cardiovascular: regular rate, rhythm, no edema, no gallop, no JVD, no murmur Abdomen: normal bowel sounds, non tender, soft, no organomegaly, no pulsatile mass Fundus: Firm Incision Description: Clean, Dry & Intact Extremities: normal range of motion, non-tender, normal inspection, no pedal edema, no calf tenderness Laboratory Results Last 24 Hours Test 04/05/17 06:41 Hemoglobin 9.2 g/dL Hematocrit 28.1 % Assessment and Plan Day Number: 1 Continue Routine Care: Day #1 pt doing well no complaints Anticipate dich tomorrow
[2017-04-05] MEDS: FERROUS SULFATE 325 MG TAB PO SCH (08:28)
[2017-04-05] MEDS: DOCUSATE SODIUM 100 MG CAP PO SCH ×2 (08:29→20:25)
[2017-04-05] MEDS: PRENATAL VITAMIN TAB PO SCH (08:29)
[2017-04-05] MEDS: IBUPROFEN 600 MG TAB PO PRN ×3 (08:42→20:24)
[2017-04-05 15:30] VITALS: BP 119/72; PULSE 73; TEMP 36.5
[2017-04-05 18:50] VITALS: BP 121/75; PULSE 69; TEMP 36.8
[2017-04-05] MEDS ORDERED: BISACODYL 5 MG TABEC PO SCH (20:00)
[2017-04-05] MEDS: CHLORPROMAZINE HCL 100 MG TAB PO SCH (20:15)
[2017-04-06 00:05] VITALS: BP 135/73; PULSE 90; TEMP 36; O2SAT 97
[2017-04-06] MEDS: IBUPROFEN 600 MG TAB PO PRN ×2 (00:21→04:16)
[2017-04-06] MEDS ORDERED: NURSING VERBAL MED ORDER ONE (03:45)
[2017-04-06] MEDS ORDERED: ACETAMINOPHEN/CODEINE 300/30MG TAB PO PRN (04:15)
[2017-04-06 06:13] LABS: HEMATOCRIT 30.3 % (37-47); MEAN CELL VOLUME 85.8 fL (80-100); MEAN CORPUSCULAR HEMOGLOBIN 28.3 pg (25-34); MEAN PLATELET VOLUME 10.8 fL (7.4-10.4); PLATELET COUNT 163 K/uL (130-400); RED BLOOD COUNT 3.53 M/uL (4.2-5.4); WHITE BLOOD COUNT 9.54 K/uL (4.8-10.8)
[2017-04-06] MEDS ORDERED: BISACODYL 10 MG SUPP PR PRN (07:00)
[2017-04-06] MEDS: FLUOXETINE HCL 20 MG CAP PO SCH (07:52)
[2017-04-06] MEDS: TOPIRAMATE 50 MG TAB PO SCH (07:52)
[2017-04-06] MEDS: PRENATAL VITAMIN TAB PO SCH (07:52)
[2017-04-06] MEDS: FERROUS SULFATE 325 MG TAB PO SCH (07:52)
[2017-04-06] MEDS: CHLORPROMAZINE HCL 25 MG TAB PO PRN (07:53)
[2017-04-06 08:30] VITALS: BP 126/80; PULSE 72; TEMP 36.3
[2017-04-06] MEDS: DOCUSATE SODIUM 100 MG CAP PO SCH (09:14)
--- NOTE | 2017-04-06 10:26 | Discharge Instructions ---
Discharge Instructions Date of Service Apr 06, 2017. Admission Reason for Admission: Leakage, Amniotic Fluid Discharge Discharge Diagnosis / Problem: Vaginal Delivery Discharge Goals Goal(s): Routine recovery after delivery Medications Continue Dispensed Medications: supercream, dermaplast, tucks, lansinoh Activity Recommendations Activity Limitations: per Instructions/Follow-up section . Instructions / Follow-Up Instructions / Follow-Up ACTIVITY RECOMMENDATIONS: * Gradual return to full activity over the next 2-3 weeks. * No lifting - nothing heavier than baby over the next 2-3 weeks. * Do not engage in vigorous exercise, sexual activity or sports until cleared by your physician. * Do not drive or operate any motorized equipment until cleared by your physician. * You may shower/bathe daily. BREAST CARE: If you are not breast feeding: * Wear a supportive bra 24 hours a day for one to two weeks. * Avoid stimulating your breasts and nipples as much as possible during the first few weeks after delivery. * When taking a shower, have the warm water hit your back, not breasts. * When your breasts feel full, apply ice packs. Usually three to four times a day helps ease the discomfort. * Take a mild pain medication (Tylenol/Motrin) when you are uncomfortable. If breast feeding: * Use breast milk to lubricate nipples. Lansinoh cream may be used for sore nipples. You do not need to remove cream prior to breast feeding. If using a different brand of cream, check the label for directions regarding removal of cream prior to nursing. * Wear a supportive bra. * If having problems with breasts or breast feeding, call a cardiology clinical consultant or your health care provider. EPISIOTOMY CARE: After delivery, if you have an episiotomy (stitches), the following steps will ease discomfort and aid healing. * For the first 24 hours after delivery, place ice packs next to your episiotomy to help reduce swelling. * After the first 24 hour-period, sitz baths, either portable or in the tub, are suggested. A shower with a shower arm sprayed over the episiotomy may be comforting. * Nadeen care should be done after each voiding and bowel movement. Squirt warm water from a plastic bottle over the perineum (region of the body between the anus and urinary opening) and pat dry. * Use Dermoplast to ease discomfort. Shake container. [place] directly over the episiotomy. * Place a Tucks on a clean sanitary pad next to your episiotomy. OVER THE COUNTER MEDICATION: * For discomfort or pain, you may use Acetaminophen (Tylenol), Ibuprofen (Advil ), or Naproxen (Aleve) following the package directions. * For constipation you may use Colace following the package directions. SPECIAL CARE INSTRUCTIONS: When you are discharged from the hospital, it is important for you to follow the instructions listed below: * During the first week at home, you should be able to care for yourself and your baby. In addition, the usual light household activities are encouraged. * Limit your activities to the way you feel. Do not try to clean the house or move furniture. Be sensible. * If you actively engage in sports and have done so up until the time of your delivery, you may resume these activities as soon as you feel able. This may take up to one month or even longer. Use good judgment. * Continue to take your vitamins for at least six weeks after the of your baby. * Your diet need not be limited unless you were on a special diet before your delivery. Breast-feeding mothers need around 2500 calories per day and at least 64-80 ounces of fluid per day (8 to 10 glasses). * You should eat foods from the four major food groups. Crash diets or fad diets are to be avoided. Eating lean meats, fresh fruits and vegetables, low-fat dairy products, high fiber foods and a regular exercise program, will help you get back to your pre- weight without putting your health at risk. * Constipation is sometimes a problem after delivery. Take a mild laxative as needed. If breast feeding, Milk of Magnesia is acceptable to use. You may use a suppository or Fleets enema if no episiotomy. * A daily shower or tub bath is suggested. Be sure to thoroughly and gently dry the perineum. * A bloody vaginal discharge will usually continue until around four weeks post . A small amount of bleeding may continue for as long as six weeks. Vaginal discharge changes from the bright red bleeding after delivery to pink then brownish and finally yellowish-pink before becoming white and disappearing. * Bleeding may increase with activity. Your first period may come in 4-8 weeks. If you are breast feeding, your period may be delayed even longer. * [place] (sex) can begin whenever both you and your partner feel comfortable and do not have any form of genital infection. It is recommended that you wait until after your return appointment and discuss with your physician. If you have questions, please talk to your health care practitioner. A condom should be used to prevent infection and . * Foreplay, gentle intercourse and lubrication is very important the first several times to prevent pain. A water-based lubricant such as K-Y jelly or Astroglide may be used. * Tampons may be used six weeks after delivery. * Douching should be avoided for 6 weeks after delivery. * If you have RH negative blood and your baby is RH positive, you will receive RHOGAM by injection prior to discharge. The nurse will give you a card to keep with you that has the date and place that you received RHOGAM after delivery. * During your care, you had a Rubella screen done to check for the presence of rubella antibodies in your blood. If your test was negative, you will receive a Rubella vaccine prior to discharge. This vaccine may cause a fever, soreness at the injection site and flu-like symptoms. If these symptoms persist, notify your health care practitioner. is not advised for three months after a Rubella vaccine. There is a higher chance of having a baby with defects if conceived within three months of getting the vaccine. * If you were discharged 24 hours from delivery or before 48 hours: Visiting nurses will come to your home 48 hours after discharge to assess you and your baby. The visiting nurse will meet with you while you are in the hospital to arrange a time and get directions to your home. * Verbalizes understanding of car seat law as reviewed with patient nursing. * Car Seat hand-out given and reviewed with patient by nursing. * Shaken baby information reviewed with patient by nursing. Call you doctor if: * Heavy bleeding (saturating several pads an hour) or passing clots the size of your fist. * A fever >101 degrees F (38.3 degrees C) on two occasions four hours apart and/or chills. * Unusual pain in the pelvic or vaginal areas. * "Baby Blues" lasting longer than two weeks. If you have any questions or concerns, call your health care practitioner at . FOLLOW-UP VISIT: * Please call the office at to schedule a 6 week examination. It is important you keep this appointment. * It is important for you to make arrangements for either yearly or twice yearly check-ups thereafter. Current Hospital Diet Patient's current hospital diet: Regular OB Diet Discharge Diet Recommended Diet: Regular OB Diet Pending Studies Studies pending at discharge: no Medical Emergencies . Who to Call and When: Medical Emergencies: If at any time you feel your situation is an emergency, please call 911 immediately. . Non-Emergent Contact Non-Emergency issues call your: Primary Care Provider, [employer] . . "Provider Documentation" section prepared by Armando Leos. . VTE Core Measure Inpt VTE Proph given/why not?: Treatment not indicated
--- NOTE | 2017-04-06 10:28 | OB/GYN Progress Note ---
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 Subjective conversation w/ patient, physical exam Ambulation: ambulating normally Voiding: no voiding problems Passing Gas: Yes Diet Tolerance: Regular Diet Lochia: Small Feeding Type: Bottle Feeding Pain: 0 Notes: Doing well, no concerns. Pain well controlled. Ambulating without difficulty. Tolerating regular diet. Would like to go home today. Review of Systems Constitutional: No fever, No chills, No sweats, No weight loss, No weakness, No fatigue, No problem reported Respiratory: No cough, No sputum, No wheezing, No shortness of breath, No dyspnea on exertion, No dyspnea at rest, No hemoptysis, No problem reported Cardiac: No chest pain, No orthopnea, No PND, No edema, No claudication, No palpitations, No problem reported Abdomen: No pain, No nausea, No vomiting, No diarrhea, No constipation, No GI bleeding, No problem reported Female : No see HPI, No dysuria, No urinary frequency, No hematuria, No incontinence, No abnormal vaginal bleeding, No vaginal discharge, No problem reported Objective Vital Signs Date Time Temp Pulse Resp B/P (MAP) Pulse Ox O2 Delivery O2 Flow Rate FiO2 04/06/17 00:05 97 Room Air 04/06/17 00:05 36.0 90 22 135/73 (93) 97 Room Air 04/05/17 18:50 36.8 69 20 121/75 (90) Room Air 04/05/17 15:30 Room Air 04/05/17 15:30 36.5 73 20 119/72 (88) Room Air Laboratory Results Last 24 Hours Test 04/06/17 05:50 White Blood Count 9.54 K/uL Red Blood Count 3.53 M/uL Hemoglobin 10.0 g/dL Hematocrit 30.3 % Mean Corpuscular Volume 85.8 fL Mean Corpuscular Hemoglobin 28.3 pg Mean Corpuscular Hemoglobin Concent 33.0 g/dl RDW Standard Deviation 44.2 fL RDW Coefficient of Variation 14.3 % Platelet Count 163 K/uL Mean Platelet Volume 10.8 fL Assessment and Plan Day Number: 2 Continue Routine Care: -D/C home today -F/U in 6 weeks.
[2017-04-06 11:20] VITALS: BP_DIAS 80; PULSE 72; TEMP 36.3
== END 2017-04-06 11:20 | disposition home or self-care (01) | DRG 775 ==
LOC: C.LD 21:34 → C.OPB 21:34 → C.LD 22:12 → C.OPB 22:12 → C.OBG 04-04 08:14
PROVIDERS: ADMIT Obstetrics & Gynecology; ATTEND Obstetrics & Gynecology
PROC: 10E0XZZ Delivery of Products of Conception, External Approach (ICD-10-PCS; principal; 2017-04-04)
DX: O42.92 Full-term premature rupture of membranes, unspecified as to length of time between rupture and onset of labor (principal); Z37.0 Single live birth; Z3A.37 37 weeks gestation of pregnancy; Z87.891 Personal history of nicotine dependence

== ENCOUNTER 2018-01-07 16:09 | Emergency (ER) | payer BC ==
[~2018-01-07] VITALS: Ht 160 cm; Wt 82.1 kg
[2018-01-07 16:12] VITALS: TEMP 36.8; Ht 160 cm; Wt 82.1 kg
[2018-01-07] MEDS ORDERED: SODIUM CHLORIDE 0.9% 1000ML 1,000 ML IV STA ×2 (16:42)
[2018-01-07] MEDS ORDERED: KETOROLAC TROMETHAMINE 30 MG/ML VIAL IV STA (16:42)
[2018-01-07 17:08] LABS: BASO % 0.7 %; BASO ABS # 0.04 K/uL (0-0.2); EOS % 2.9 %; EOS ABS # 0.17 K/uL (0-0.5); HEMATOCRIT 43.5 % (37-47); HEMOGLOBIN 14.8 g/dL (12.0-16.0); IG# 0.01 K/uL (0.00-0.02); LYMPH % 33.1 %; LYMPH ABS # 1.96 K/uL (1.2-3.4); MEAN CELL VOLUME 89.7 fL (80-100); MEAN CORPUSCULAR HEMOGLOBIN 30.5 pg (25-34); MEAN PLATELET VOLUME 11.8 fL (7.4-10.4); MONO % 5.6 %; MONO ABS # 0.33 K/uL (0.11-0.59); NEUT % 57.5 %; NEUT ABS # 3.41 K/uL (1.4-6.5); PLATELET COUNT 193 K/uL (130-400); RED CELL DISTRIBUTION WIDTH CV 12.7 % (11.5-14.5); WHITE BLOOD COUNT 5.92 K/uL (4.8-10.8)
[2018-01-07 17:26] LABS: CALCIUM 9.6 mg/dl (8.5-10.1); CREATININE 0.76 mg/dl (0.60-1.20); POTASSIUM 3.7 mmol/L (3.5-5.1)
--- NOTE | 2018-01-07 18:04 | DIAGNOSTIC IMAGING REPORT ---
ULTRASOUND OF THE PELVIS CLINICAL HISTORY: Pelvic pain. COMPARISON STUDY: Pelvic CT dated 11/28/2015. TECHNIQUE: Real-time, grayscale, and color flow sonography of the pelvis is performed both transabdominally and endovaginally. Images are reviewed in the transverse and longitudinal planes. FINDINGS: Uterus: The uterus is normal in size and echotexture, measuring 9.7 x 4.0 x 4.4 cm. A nabothian cyst is incidentally noted in the cervix. Endometrium: The endometrium is normal in appearance, and the endometrial stripe is top normal in thickness measuring up to 1.2 cm. Ovaries: The ovaries are normal in size and morphology. The right ovary measures 2.9 x 2.0 x 2.1 cm and the left ovary measures 3.2 x 2.1 x 2.6 cm. Small follicles are seen bilaterally. Normal Doppler waveforms are shown within both ovaries. Pelvis: There is trace free fluid in the cul-de-sac. No concerning adnexal lesion is seen. IMPRESSION: 1. No acute sonographic abnormality is identified in the pelvis. 2. There is trace free fluid in the cul-de-sac, likely within physiologic limits. Electronically signed by: Kadeem Erickson M.D. 01/07/2018 6:03 PM Dictated Date/Time: 01/07/2018 6:01 PM
[2018-01-07] MEDS ORDERED: OPTIRAY 320 IV PRN (19:15)
--- NOTE | 2018-01-07 19:45 | DIAGNOSTIC IMAGING REPORT ---
ABD/PELVIS IV CONTRAST ONLY CLINICAL HISTORY: 32 years-old Female presenting with RLQ ABD PAIN. TECHNIQUE: Multidetector CT of the abdomen and pelvis was performed after the administration of intravenous contrast. IV contrast: 116 mL of Optiray 320. A dose lowering technique was used consistent with the principles of ALARA (as low as reasonably achievable). COMPARISON: 11/28/2015. CT DOSE (mGy.cm): The estimated cumulative dose is 527.87 mGy.cm. FINDINGS: Nib Finisher topogram: Cholecystectomy clips noted. Additional surgical clip in the right pelvis as on prior exam. Lung bases: Minimal basilar opacities, likely atelectasis. Normal heart size. No pericardial or pleural effusion. Liver: Normal morphology. Hypodensity along the fissure for the ligamentum teres either perfusional variation or focal fatty infiltration. Patent hepatic vasculature. Biliary: No intrahepatic or extrahepatic biliary ductal dilatation. Gallbladder surgically absent. Pancreas: Normal. Spleen: Normal. Adrenal glands: Normal. Kidneys and ureters: Normal. No hydronephrosis. Bladder: Normal. Pelvic organs: Uterus and ovaries normal. Bowel: Mild wall thickening of the sigmoid colon and rectum suggested allowing for underdistention. No surrounding inflammatory change. Mild wall thickening also may be present in the proximal transverse colon. The appendix is normal. No bowel obstruction. Small bowel normal. Peritoneal cavity: No free fluid or intraperitoneal gas. Surgical clip in the right hemipelvis, possibly from prior cholecystectomy or other procedure. Lymph nodes: No enlarged lymph nodes in the abdomen or pelvis. Vasculature: Aorta and IVC patent and normal in caliber. Circumaortic left renal vein. Abdominal wall: Normal. Musculoskeletal: Normal. IMPRESSION: 1. Suggestion of mild wall thickening of the sigmoid colon and rectum. This could represent a mild colitis/proctitis, likely infectious or inflammatory. Alternatively, this may be due to underdistention. 2. Normal appendix. No other evidence of acute intra-abdominal pathology. 3. Postsurgical changes of cholecystectomy. 4. Surgical clip in the right hemipelvis is of uncertain etiology but unchanged from prior exam. Electronically signed by: Cody Dominguez M.D. 01/07/2018 7:44 PM Dictated Date/Time: 01/07/2018 7:37 PM
--- NOTE | 2018-01-07 20:08 | EMERGENCY ROOM VISIT NOTE ---
History First contact with patient: 16:17 (Viki Wang PA) First contact with patient: 16:17 (Akash Cutler M.D.) Chief Complaint: ABDOMINAL PAIN Stated Complaint: LOWER RT ABD PAIN, TENDERNESS Nursing Triage Summary: Pt states that she is experiencing a stabbing pain in her right lower abdominal quad. The pain does not radiate. She denies any nausea, fever, vomiting diarrhea. Pt denies any problems with bowel or bladder. Pt does not have a history of kidney stones. Pt called her PCP and was told to come to the ED +BS x4 quad, abdomen soft, nontender (Viki Wang PA) History of Present Illness Patient is a 32-year-old female who presents the emergency department for evaluation of right lower quadrant pain 24 hours. She states that her pain started yesterday mid afternoon. It was gradual in onset and was initially mild and tolerable, but persisted throughout the day today. She states that if she called her doctor's office in the morning and they told her to come to the emergency department. She initially wanted to wait to see if the pain improved but it got worse. She states the pain comes and goes and is across the entire lower abdomen, right worse than left. She reports loose bowel movements today, nonbloody, non-melanotic in nature. No nausea or vomiting or urinary symptoms. She states she ate lunch today with, afterwards she did not feel well. She states she has not taken anything, nor performed any interventions for her symptoms. She rates her discomfort a 6/10 presently. She states that her menses are chronically irregular. She denies any vaginal discharge. No significant gynecologic history and she states that she cannot be as her has had a vasectomy. (Viki Wang PA) Review of Systems Review of systems as per HPI. All other systems reviewed were negative. 10 systems reviewed. (Viki Wang PA) Past Medical/Surgical History Medical Problems: (1) Acute gastroenteritis (2) Anxiety (3) Benzodiazepine overdose (4) Bipolar disorder (5) Depression (6) Leakage, amniotic fluid (7) Nausea, vomiting, and diarrhea (8) Nausea, vomiting, and diarrhea (9) Overdose (10) SOB (shortness of breath) on exertion (11) Suicidal ideation (12) Suicide gesture Surgical Problems: (1) H/O wisdom tooth extraction (2) Hx of cholecystectomy (Akash Cutler M.D.) Electronic medical records are reviewed and summarized as above/below. See Problem List. (Viki Wang PA) Family History Cancer Diabetes mellitus Heart disease Hypertension (Viki Wang PA) Cancer Diabetes mellitus Heart disease Hypertension (Akash Cutler M.D.) Social History Smoking Status: Current Every Day Smoker Alcohol Use: none Drug Use: none Marital Status: Housing Status: lives with family, lives with significant other Occupation Status: employed (Viki Wang PA) Current/Historical Medications No Active Prescriptions or Reported Meds Physical Exam Vital Signs Date Time Temp Pulse Resp B/P (MAP) Pulse Ox O2 Delivery O2 Flow Rate FiO2 01/07/18 20:24 50 16 113/66 100 01/07/18 17:54 54 15 120/68 99 Room Air 01/07/18 16:12 36.8 98 20 125/84 98 Room Air (Akash Cutler M.D.) Physical Exam CONSTITUTIONAL: Patient is a well-appearing 32-year-old female who is awake and alert and in no acute distress. EYES: Pupils equal, round, reactive to light and accommodation. EOMs intact without nystagmus. Sclera are anicteric. ENT: Tympanic membranes intact, with normal landmarks. External canals are clear. Oral and nasopharynx are clear. Mucous membranes are moist, no lesions , tongue and gums appear normal. CARDIOVASCULAR: Regular rate and rhythm, with normal S1 and S2, no murmur or gallop or rub is heard. No carotid bruits auscultated. No JVD. Peripheral pulses easy to palpable. RESPIRATORY: Breath sounds equal and clear to auscultation without wheezes, rales, or rhonchi heard. Full and equal chest expansion without accessory muscle use or retractions. GI: Bowel sounds are present. Well-healed surgical scars are noted. Abdomen is soft, nondistended, nontender to percussion throughout. She has tenderness to palpation in the right and left lower quadrants, no guarding, rebound or rigidity. No CVA tenderness. MUSCULOSKELETAL: Full range of motion of extremities x 4 with good strength. No cyanosis, edema, joint tenderness or swelling. No deformity. INTEGUMENTARY: No lesions or rash, normal skin turgor. NEUROLOGICAL: Alert, oriented, and cooperative. Cranial nerves, sensation and strength grossly intact. Pupils round, equal, and react to light, EOMs are full. LYMPH: No lymphadenopathy. (Viki Wang PA) Medical Decision & Procedures ER Provider Diagnostic Interpretation: ABD/PELVIS IV CONTRAST ONLY CLINICAL HISTORY: 32 years-old Female presenting with RLQ ABD PAIN. TECHNIQUE: Multidetector CT of the abdomen and pelvis was performed after the administration of intravenous contrast. IV contrast: 116 mL of Optiray 320. A dose lowering technique was used consistent with the principles of ALARA (as low as reasonably achievable). COMPARISON: 11/28/2015. CT DOSE (mGy.cm): The estimated cumulative dose is 527.87 mGy.cm. 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 Additional surgical clip in the right pelvis as on prior exam. Lung bases: Minimal basilar opacities, likely atelectasis. Normal heart size. No pericardial or pleural effusion. Liver: Normal morphology. Hypodensity along the fissure for the ligamentum teres either perfusional variation or focal fatty infiltration. Patent hepatic vasculature. Biliary: No intrahepatic or extrahepatic biliary ductal dilatation. Gallbladder surgically absent. Pancreas: Normal. Spleen: Normal. Adrenal glands: Normal. Kidneys and ureters: Normal. No hydronephrosis. Bladder: Normal. Pelvic organs: Uterus and ovaries normal. Bowel: Mild wall thickening of the sigmoid colon and rectum suggested allowing for underdistention. No surrounding inflammatory change. Mild wall thickening also may be present in the proximal transverse colon. The appendix is normal. No bowel obstruction. Small bowel normal. Peritoneal cavity: No free fluid or intraperitoneal gas. Surgical clip in the right hemipelvis, possibly from prior cholecystectomy or other procedure. Lymph nodes: No enlarged lymph nodes in the abdomen or pelvis. Vasculature: Aorta and IVC patent and normal in caliber. Circumaortic left renal vein. Abdominal wall: Normal. Musculoskeletal: Normal. IMPRESSION: 1. Suggestion of mild wall thickening of the sigmoid colon and rectum. This could represent a mild colitis/proctitis, likely infectious or inflammatory. Alternatively, this may be due to underdistention. 2. Normal appendix. No other evidence of acute intra-abdominal pathology. 3. Postsurgical changes of cholecystectomy. 4. Surgical clip in the right hemipelvis is of uncertain etiology but unchanged from prior exam. ULTRASOUND OF THE PELVIS CLINICAL HISTORY: Pelvic pain. COMPARISON STUDY: Pelvic CT dated 11/28/2015. TECHNIQUE: Real-time, grayscale, and color flow sonography of the pelvis is performed both transabdominally and endovaginally. Images are reviewed in the transverse and longitudinal planes. FINDINGS: Uterus: The uterus is normal in size and echotexture, measuring 9.7 x 4.0 x 4.4 cm. A nabothian cyst is incidentally noted in the cervix. Endometrium: The endometrium is normal in appearance, and the endometrial stripe is top normal in thickness measuring up to 1.2 cm. Ovaries: The ovaries are normal in size and morphology. The right ovary measures 2.9 x 2.0 x 2.1 cm and the left ovary measures 3.2 x 2.1 x 2.6 cm. Small follicles are seen bilaterally. Normal Doppler waveforms are shown within both ovaries. Pelvis: There is trace free fluid in the cul-de-sac. No concerning adnexal lesion is seen. IMPRESSION: 1. No acute sonographic abnormality is identified in the pelvis. 2. There is trace free fluid in the cul-de-sac, likely within physiologic limits. (Viki Wang,KAMERON) Laboratory Results 01/07/18 16:55 Red Blood Count 4.85, Mean Corpuscular Volume 89.7, Mean Corpuscular Hemoglobin 30.5, Mean Corpuscular Hemoglobin Concent 34.0, Mean Platelet Volume 11.8, Neutrophils (%) (Auto) 57.5, Lymphocytes (%) (Auto) 33.1, Monocytes (%) (Auto) 5.6, Eosinophils (%) (Auto) 2.9, Basophils (%) (Auto) 0.7, Neutrophils # (Auto) 3.41, Lymphocytes # (Auto) 1.96, Monocytes # (Auto) 0.33, Eosinophils # (Auto) 0.17, Basophils # (Auto) 0.04 01/07/18 16:55 Test 01/07/18 16:47 01/07/18 16:55 Urine Test NEG (NEG) White Blood Count 5.92 K/uL (4.8-10.8) Red Blood Count 4.85 M/uL (4.2-5.4) Hemoglobin 14.8 g/dL (12.0-16.0) Hematocrit 43.5 % (37-47) Mean Corpuscular Volume 89.7 fL (80-100) Mean Corpuscular Hemoglobin 30.5 pg (25-34) Mean Corpuscular Hemoglobin Concent 34.0 g/dl (32-36) Platelet Count 193 K/uL (130-400) Mean Platelet Volume 11.8 fL (7.4-10.4) Neutrophils (%) (Auto) 57.5 % Lymphocytes (%) (Auto) 33.1 % Monocytes (%) (Auto) 5.6 % Eosinophils (%) (Auto) 2.9 % Basophils (%) (Auto) 0.7 % Neutrophils # (Auto) 3.41 K/uL (1.4-6.5) Lymphocytes # (Auto) 1.96 K/uL (1.2-3.4) Monocytes # (Auto) 0.33 K/uL (0.11-0.59) Eosinophils # (Auto) 0.17 K/uL (0-0.5) Basophils # (Auto) 0.04 K/uL (0-0.2) RDW Standard Deviation 41.0 fL (36.4-46.3) RDW Coefficient of Variation 12.7 % (11.5-14.5) Immature Granulocyte % (Auto) 0.2 % Immature Granulocyte # (Auto) 0.01 K/uL (0.00-0.02) Anion Gap 9.0 mmol/L (3-11) Est Creatinine Clear Calc Drug Dose 109.8 ml/min Estimated GFR () 122.0 Estimated GFR (Non- 105.3 BUN/Creatinine Ratio 14.0 (10-20) Calcium Level 9.6 mg/dl (8.5-10.1) (Akash Cutler M.D.) Medications Administered Medications (Trade) Dose Ordered Sig/Kenrick Route Start Time Stop Time Status Last Admin Dose Admin Sodium Chloride 1,000 ml @ 999 mls/hr Q1H1M STAT IV 01/07/18 16:42 01/07/18 17:42 DC 01/07/18 17:02 999 MLS/HR Sodium Chloride 1,000 ml @ 250 mls/hr Q4H STAT IV 01/07/18 16:42 01/07/18 20:41 DC 01/07/18 19:30 250 MLS/HR Ketorolac Tromethamine (Toradol Inj) 30 mg NOW STAT IV 01/07/18 16:42 01/07/18 16:45 DC 01/07/18 17:02 30 MG (Akash Cutler M.D.) ED Course The patient was seen and assessed as above. Her old records were reviewed. IV lock was initiated. The patient had driven herself to the emergency department and therefore declined narcotic medications. Laboratory studies were collected. Urine sample was dipped and was clean, urine test was negative. CBC and PRP were collected. Patient was hydrated with normal saline solution and medicated with Toradol 30 mg IV. Pelvic ultrasound was performed. Laboratory studies noted a normal white count 5900, no left shift or bandemia. No anemia. No gross electrolyte imbalance noted. Pelvic ultrasound was unremarkable. Trace free fluid felt to be physiologic. Given the patient's right lower quadrant pain, CT scan of the abdomen and pelvis with IV contrast was ordered. CT scan noted a normal-appearing appendix. There was a suggestion of mild wall thickening of the sigmoid colon and rectum, possibly representing a mild colitis or proctitis., Likely infectious or inflammatory. The patient has been experiencing some loose stools which would support this. No other acute findings of the abdomen and pelvis were noted. All laboratory and diagnostic imaging studies were reviewed with the patient. She reported that she felt improved with the IV Toradol. She rated her pain a 0/10 at discharge. She did not have any further diarrhea in the emergency department and stool sample was not collected. Supportive care measures were discussed with the patient. She was educated on the worrisome signs or symptoms for which she should return to the emergency department and otherwise should follow-up with her primary care provider for further care and management if her symptoms are not improving. Differential diagnoses entertained included UTI, pyelonephritis, renal colic, ovarian cyst, ovarian torsion, , ectopic , PID, tubo-ovarian abscess, appendicitis, among others. (Viki Wnag PA) Medical Decision See ED course. (Viki Wang PA) Medication Reconcilliation Current Medication List: was personally reviewed by me (Viki Wang PA) Blood Pressure Screening Patient's blood pressure: Normal blood pressure Blood pressure disposition: Did not require urgent referral (Viki Wang PA) Impression Primary Impression: Colitis Additional Impression: Bilateral lower abdominal pain Departure Information Prescriptions No Active Prescriptions or Reported Meds Referrals No Doctor, Assigned (PCP) Patient Instructions My [facility] Additional Instructions Acetaminophen(Tylenol) may be used for fever or pain. Use 1000mg every eight hours as needed. Avoid using more than 3000mg in a 24 hour period. This is available over the counter. Rest and drink plenty of fluids as tolerated. Slow sips of water or sports drinks are recommended instead of large amounts all at once. Continue current medications. Once your stomach is settled start with a clear liquid diet (jello, soup broth, etc.) and then advance as tolerated. You should avoid full, heavy meals for about 24 hrs from the time your symptoms resolved. Return to the ER immediately for worsening or persistent abdominal pain, vomiting, fevers, chest pains, difficulty breathing, black or bloody stools, worsening of your condition, or as needed. Return to the ER or follow up with your primary provider in 8-12 hours for a recheck of your current condition. Follow up with your primary physician in 1-2 days for a recheck of your current condition. Problem Qualifiers
[2018-01-07 20:24] VITALS: BP 113/66; PULSE 50; O2SAT 100
== END 2018-01-07 20:25 | disposition home or self-care (01) ==
LOC: C.EDB 16:10 → C.EDA 20:25
DX: K52.9 Noninfective gastroenteritis and colitis, unspecified (principal); R10.31 Right lower quadrant pain; R10.32 Left lower quadrant pain; F17.200 Nicotine dependence, unspecified, uncomplicated